=== PATIENT | male | born 1940 | race Caucasian/White ===

== ENCOUNTER 2017-09-24 18:07 | Inpatient (IN) | payer MEDICARE, MEDICAID ==
[~2017-09-24] VITALS: Ht 177.8 cm; Wt 72.0 kg
[2017-09-24 18:23] VITALS: BP 110/54; PULSE 61; RESP 14; TEMP 98.6; O2SAT 100
[2017-09-24 20:08] LABS: AUTOMATED NEUTROPHIL # 13.7 TH/MM3 (1.8-7.7); BASOPHIL # 0.1 TH/MM3 (0-0.2); BASOPHIL % 0.8 % (0.0-2.0); EOSINOPHIL # 0.2 TH/MM3 (0-0.4); HEMATOCRIT 31.7 % (39.0-51.0); HEMOGLOBIN 10.4 GM/DL (13.0-17.0); LYMPH % 6.8 % (9.0-44.0); LYMPHOCYTE # 1.1 TH/MM3 (1.0-4.8); MEAN CELL VOLUME 102.1 FL (80.0-100.0); MEAN CORPUSCULAR HEMOGLOBIN 33.6 PG (27.0-34.0); MEAN CORPUSCULAR HGB CONC 32.9 % (32.0-36.0); MEAN PLATELET VOLUME 9.4 FL (7.0-11.0); MONO % 7.6 % (0.0-8.0); MONOCYTE # 1.3 TH/MM3 (0-0.9); NEUT % 83.8 % (16.0-70.0); PLATELET COUNT 422 TH/MM3 (150-450); RED CELL DISTRIBUTION WIDTH 16.2 % (11.6-17.2); WHITE BLOOD COUNT 16.3 TH/MM3 (4.0-11.0)
--- NOTE | 2017-09-24 20:10 | PD ---
HPI Chief Complaint: Medical Clearance Time Seen by Provider: 19:07 Travel History International Travel<30 days: No Contact w/Intl Traveler<30days: No Traveled to known affect area: No History of Present Illness HPI pt bed bound legs contracte d male , he is alert and oriented times 2 able to tell me he has chronic leg pain , says he lives in [facility], [place] was sent [place] for UTI on antibioitcs not getting better.. Pt has Hx afib and and HTn on anticoagulant and digoxin, pt denies CP no SOB no vomit nausea , pt AOx2 denies skin brake down it sacrum no pain when I palpated throw his clothes sacrum area PFSH Past Medical History Anxiety: Yes Depression: Yes Congestive Heart Failure: Yes COPD: Yes Cerebrovascular Accident: Yes Coronary Artery Disease: Yes Diabetes: Yes Patient Takes Glucophage: No Diminished Hearing: Yes GERD: Yes Gout: Yes Hypertension: Yes Insomnia: Yes Renal Failure: Yes Tetanus Vaccination: Unknown Past Surgical History Eye Surgery: Yes (cataracts excision) Pacemaker: Yes Social History Alcohol Use: No Tobacco Use: No Substance Use: No Allergies-Medications (Allergen,Severity, Reaction): Coded Allergies: No Known Allergies (Unverified , 09/24/17) Reported Meds & Prescriptions Reported Meds & Active Scripts Active Reported Docusate Sodium 100 Mg Cap 100 Mg PO BID Tylenol (Acetaminophen) 325 Mg Tab 325 Mg PO Q6H PRN Albuterol Neb (Albuterol Sulfate) 2.5 Mg/0.5 Ml Neb 2.5 Mg NEB Q4HR NEB PRN Note: The Albuterol Sulfate Inhalation Solution is concentrated and must be diluted. Read complete instructions carefully before using. Zofran (Ondansetron HCl) 4 Mg Tab 4 Mg PO Q6HR PRN Aspirin Low Dose (Aspirin) 81 Mg Chew 81 Mg CHEW DAILY Plavix (Clopidogrel Bisulfate) 75 Mg Tab 75 Mg PO DAILY Zantac (Ranitidine HCl) 150 Mg Tab 150 Mg PO DAILY Allopurinol 100 Mg Tab 150 Mg PO DAILY Bumetanide 1 Mg Tab 1 Mg PO DAILY Digoxin 0.125 Mg Tab 0.125 Mg PO EVERY OTHER DAY Zocor (Simvastatin) 10 Mg Tab 10 Mg PO DAILY Prozac (Fluoxetine HCl) 20 Mg Cap 20 Mg PO DAILY Metoprolol Tartrate 25 Mg Tab 25 Mg PO BID Review of Systems Except as stated in HPI: all other systems reviewed are Neg (leg knee pain bilateral is all he complained of to this MD ) Physical Exam Narrative GENERAL: awake alert non toxic appearing and able to answeer my question s , SKIN: Warm and dry. HEAD: Atraumatic. Normocephalic. EYES: Pupils equal and round. No scleral icterus. No injection or drainage. ENT: No nasal bleeding or discharge. Mucous membranes pink and moist. NECK: Trachea midline. No JVD. CARDIOVASCULAR: Regular rate and rhythm. RESPIRATORY: No accessory muscle use. Clear to auscultation. Breath sounds equal bilaterally. GASTROINTESTINAL: Abdomen soft, non-tender, nondistended. Hepatic and splenic margins not palpable. MUSCULOSKELETAL: Extremities Bed bound --> legs contracted in bed, no signs of injury, no pain with palpation of his knees and feet bilateral , right leg is thinner and seems more wasting then left, left leg on bed and mostlikely more gravity dependent Edema in LEFT side . pt laying on his left side ...without obvious injury or pain reaction to manipulation NEUROLOGICAL: Awake and alert. No obvious cranial nerve deficits. Motor grossly within normal limits. Five out of 5 muscle strength in the arms and legs. Normal speech. PSYCHIATRIC: Appropriate mood and affect Data Data Last Documented VS Vital Signs Date Time Temp Pulse Resp B/P (MAP) Pulse Ox O2 Delivery O2 Flow Rate FiO2 09/24/17 18:23 98.6 61 14 110/54 (72) 100 Room Air Orders Orders Complete Blood Count With Diff (09/24/17 19:14) Comprehensive Metabolic Panel (09/24/17 19:14) Lipase (09/24/17 19:14) Ua Includes Microscopic (09/24/17 19:14) Levofloxacin 750 Mg Premix Inj (Levaquin (09/24/17 20:45) Urine Culture (09/24/17 21:50) Acetaminophen (Tylenol) (09/24/17 22:00) Aspirin Chew (Aspirin Chew) (09/25/17 09:00) Clopidogrel (Plavix) (09/25/17 09:00) Digoxin (Lanoxin) (09/26/17 09:00) Docusate Sodium (Colace) (09/25/17 09:00) Fluoxetine (Prozac) (09/25/17 09:00) Metoprolol Tartrate (Lopressor) (09/25/17 09:00) Ondansetron Odt (Zofran Odt) (09/24/17 22:00) Famotidine (Pepcid) (09/25/17 09:00) Pravastatin (Pravachol) (09/25/17 09:00) Admit Order (Ed Use Only) (09/24/17 21:54) Albuterol Neb (Albuterol Neb) (09/24/17 22:00) Labs Laboratory Tests Test 09/24/17 19:20 White Blood Count 16.3 TH/MM3 Red Blood Count 3.10 MIL/MM3 Hemoglobin 10.4 GM/DL Hematocrit 31.7 % Mean Corpuscular Volume 102.1 FL Mean Corpuscular Hemoglobin 33.6 PG Mean Corpuscular Hemoglobin Concent 32.9 % Red Cell Distribution Width 16.2 % Platelet Count 422 TH/MM3 Mean Platelet Volume 9.4 FL Neutrophils (%) (Auto) 83.8 % Lymphocytes (%) (Auto) 6.8 % Monocytes (%) (Auto) 7.6 % Eosinophils (%) (Auto) 1.0 % Basophils (%) (Auto) 0.8 % Neutrophils # (Auto) 13.7 TH/MM3 Lymphocytes # (Auto) 1.1 TH/MM3 Monocytes # (Auto) 1.3 TH/MM3 Eosinophils # (Auto) 0.2 TH/MM3 Basophils # (Auto) 0.1 TH/MM3 CBC Comment DIFF FINAL Differential Comment Urine Color YELLOW Urine Turbidity HAZY Urine pH 5.5 Urine Specific [place] 1.011 Urine Protein TRACE mg/dL Urine Glucose (UA) NEG mg/dL Urine Ketones NEG mg/dL Urine Occult Blood MOD Urine Nitrite NEG Urine Bilirubin NEG Urine Urobilinogen LESS THAN 2.0 MG/DL Urine Leukocyte Esterase LARGE Urine RBC 7 /hpf Urine WBC 50 /hpf Urine Squamous Epithelial Cells <1 /hpf Urine Bacteria OCC /hpf Urine Mucus FEW /lpf Blood Urea Nitrogen 58 MG/DL Creatinine 2.13 MG/DL Random Glucose 156 MG/DL Total Protein 6.3 GM/DL Albumin 1.9 GM/DL Calcium Level 8.1 MG/DL Alkaline Phosphatase 390 U/L Aspartate Amino Transf (AST/SGOT) 81 U/L Alanine Aminotransferase (ALT/SGPT) 63 U/L Total Bilirubin 0.8 MG/DL Sodium Level 134 MEQ/L Potassium Level 4.6 MEQ/L Chloride Level 104 MEQ/L Carbon Dioxide Level 20.5 MEQ/L Anion Gap 10 MEQ/L Estimat Glomerular Filtration Rate 31 ML/MIN Lipase 75 U/L MDM Medical Decision Making Medical Screen Exam Complete: Yes Emergency Medical Condition: Yes Differential Diagnosis UTI URI , cystitis, pyelonephritis , other Narrative Course Pt has Urine analysis postive for WBC and will given IV levaquin and admit for further care obs 24 hr admit Diagnosis Primary Impression: UTI (urinary tract infection) Qualified Codes: N30.00 - Acute cystitis without hematuria Admitting Information Admitting Physician Requests: Observation Vladislav Lynn MD Sep 24, 2017 20:10
[2017-09-24 20:12] LABS: BACTERIA, URINE OCC /hpf; BILIRUBIN, URINE NEG (NEG); BLOOD, URINE MOD (NEG); GLUCOSE,URINE NEG (NEG); KETONE, URINE NEG (NEG); MUCUS URINE FEW /lpf (OCC); NITRITE,URINE NEG (NEG); PH, URINE 5.5 (5.0-8.5); SQUAMOUS EPITHELIAL CELL URINE <1 /hpf (0-5); URINE COLOR YELLOW (YELLW/STRAW); URINE LEUKOCYTE ESTERASE LARGE (NEG)
[2017-09-24] MEDS ORDERED: PLAV75TA29 PO (20:26)
[2017-09-24] MEDS ORDERED: TYLE325T PO ×2 (20:26)
[2017-09-24] MEDS ORDERED: METO25TA3 PO ×2 (20:26)
[2017-09-24] MEDS ORDERED: ALLO100T PO ×2 (20:26)
[2017-09-24] MEDS ORDERED: DIGO0.12 PO ×2 (20:26)
[2017-09-24] MEDS ORDERED: ZOCO10TA PO ×2 (20:26)
[2017-09-24] MEDS ORDERED: DOCU100C15 PO ×2 (20:26)
[2017-09-24] MEDS ORDERED: ZOFR4TAB PO ×2 (20:26)
[2017-09-24] MEDS ORDERED: ASPI81CH6 CHEW (20:26)
[2017-09-24] MEDS ORDERED: ALBU.5I NEB ×2 (20:26)
[2017-09-24] MEDS ORDERED: ZANT150T2 PO ×2 (20:26)
[2017-09-24] MEDS ORDERED: PROZ20CA11 PO ×2 (20:26)
[2017-09-24] MEDS ORDERED: BUME1TAB PO (20:26)
[2017-09-24 20:38] LABS: ALBUMIN 1.9 GM/DL (3.4-5.0); ALT (GPT) 63 U/L (12-78); AST (GOT) 81 U/L (15-37); BICARBONATE 20.5 MEQ/L (21.0-32.0); BLOOD UREA NITROGEN 58 MG/DL (7-18); CALCIUM 8.1 MG/DL (8.5-10.1); CHLORIDE 104 MEQ/L (98-107); CREATININE 2.13 MG/DL (0.60-1.30); GLOMERULAR FILTRATION RATE 31 ML/MIN (>89); GLUCOSE,RANDOM 156 MG/DL (74-106); SODIUM (NA) 134 MEQ/L (136-145)
[2017-09-24 20:40] LABS: ALKALINE PHOSPHATASE 390 U/L (45-117); TOTAL BILIRUBIN ADULT 0.8 MG/DL (0.2-1.0); TOTAL PROTEIN 6.3 GM/DL (6.4-8.2)
[2017-09-24] MEDS ORDERED: LEVOFLOXACIN 750 MG PREMIX INJ 150 ML IV ONE (20:45)
[2017-09-24] MEDS ORDERED: NALOXONE HCL 0.4 MG/ML AMP IV PUSH PRN (22:00)
[2017-09-24] MEDS ORDERED: MAGNESIUM HYDROXIDE SUSP 30 ML CUP PO PRN (22:00)
[2017-09-24] MEDS ORDERED: BISACODYL 10 MG SUPP RECTAL PRN (22:00)
[2017-09-24] MEDS ORDERED: RESP: ALBUTEROL 2.5 MG/3 ML NEB (PRN) NEB (22:00)
[2017-09-24] MEDS ORDERED: SODIUM CHLORIDE 0.9% FLUSH 10 ML FLUSH IV FLUSH PRN (22:00)
[2017-09-24] MEDS ORDERED: ONDANSETRON ODT 4 MG TAB PO PRN (22:00)
[2017-09-24] MEDS ORDERED: ONDANSETRON HCL 4 MG/2 ML VIAL IVP PRN (22:00)
[2017-09-24] MEDS ORDERED: ACETAMINOPHEN 325 MG TAB PO PRN ×2 (22:00)
[2017-09-24] MEDS ORDERED: LACTULOSE SYRUP 20 GM/30 ML CUP PO PRN (22:00)
[2017-09-24] MEDS ORDERED: SENNOSIDES 8.6 MG TAB PO PRN (22:00)
[2017-09-24] MEDS: HEPARIN SODIUM - SQ 10,000 UNITS/ML VIAL SQ SCH (22:32)
[2017-09-24] MEDS: SODIUM CHLOR 0.9% 1000 ML INJ 1,000 ML IV SCH (22:33)
[2017-09-24 22:54] VITALS: BP 112/61; PULSE 65; RESP 20; O2SAT 94
--- NOTE | 2017-09-24 23:14 | HHI.HP ---
[facility] Primary Care Physician Jerry Schaffer MD Admission Diagnosis UTI Diagnoses: Chief Complaint: Sent from care home, concern for UTI Travel History International Travel<30 Days: No Contact w/Intl Traveler <30 Da: No Traveled to Known Affected Are: No History of Present Illness 76-year-old male brought to the hospital from a care home. Apparently the patient was sent for concern of urinary tract infection. I reviewed the available medical records from the nursing facility. Apparently the patient has a history of CVA, he is bedbound. He does have an appointed guardian in his chart. Evidently he has some cognitive deficits. He knows his name and that he is in the hospital but he does not know why. He is unable to contribute to the medical history. He currently denies any dysuria. He does not know whether or not he has had fevers. He could not tell me the last time he ate. He is very hard of hearing and currently does not have any specific complaints. Review of Systems ROS Limitations: Clinical Condition, Poor Historian Gastrointestinal: DENIES: Abdominal pain, Nausea Limited ROS due to the patient's cognitive dysfunction. Past Family Social History Past Medical History Review of outside records History of CVA with unspecified residual deficit. Patient is bedbound. Atrial fibrillation COPD History of CHF, unknown type Hypertension Diabetes Past Surgical History Unable to obtain Reported Medications Reported Meds & Active Scripts Active Reported Docusate Sodium 100 Mg Cap 100 Mg PO BID Tylenol (Acetaminophen) 325 Mg Tab 325 Mg PO Q6H PRN Albuterol Neb (Albuterol Sulfate) 2.5 Mg/0.5 Ml Neb 2.5 Mg NEB Q4HR NEB PRN Note: The Albuterol Sulfate Inhalation Solution is concentrated and must be diluted. Read complete instructions carefully before using. Zofran (Ondansetron HCl) 4 Mg Tab 4 Mg PO Q6HR PRN Aspirin Low Dose (Aspirin) 81 Mg Chew 81 Mg CHEW DAILY Plavix (Clopidogrel Bisulfate) 75 Mg Tab 75 Mg PO DAILY Zantac (Ranitidine HCl) 150 Mg Tab 150 Mg PO DAILY Allopurinol 100 Mg Tab 150 Mg PO DAILY Bumetanide 1 Mg Tab 1 Mg PO DAILY Digoxin 0.125 Mg Tab 0.125 Mg PO EVERY OTHER DAY Zocor (Simvastatin) 10 Mg Tab 10 Mg PO DAILY Prozac (Fluoxetine HCl) 20 Mg Cap 20 Mg PO DAILY Metoprolol Tartrate 25 Mg Tab 25 Mg PO BID Allergies: Coded Allergies: No Known Allergies (Unverified , 09/24/17) Family History Unable to obtain Social History Unable to obtain Physical Exam Vital Signs Vital Signs Date Time Temp Pulse Resp B/P (MAP) Pulse Ox O2 Delivery O2 Flow Rate FiO2 09/24/17 22:54 65 20 112/61 (78) 94 09/24/17 18:23 98.6 61 14 110/54 (72) 100 Room Air Physical Exam GENERAL: Elderly male in no acute distress. SKIN: No rashes, ecchymoses or lesions. Cool and dry. HEAD: Atraumatic. Normocephalic. No temporal or scalp tenderness. EYES: Pupils equal round and reactive. Extraocular motions intact. No scleral icterus. No injection or drainage. ENT: Nose without bleeding, purulent drainage or septal hematoma. Throat without erythema, tonsillar hypertrophy or exudate. Uvula midline. Airway patent. NECK: Trachea midline. No JVD or lymphadenopathy. Supple, nontender, no meningeal signs. CARDIOVASCULAR: Regular rate and rhythm without murmurs, gallops, or rubs. RESPIRATORY: Clear to auscultation. Breath sounds equal bilaterally. No wheezes , rales, or rhonchi. GASTROINTESTINAL: Abdomen soft, non-tender, nondistended. No hepato-splenomegaly , or palpable masses. No guarding. MUSCULOSKELETAL: Bilateral lower extremities with contractures. 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 No significant strength in the legs. NEUROLOGICAL: Awake and alert to self only. Very hard of hearing. Can answer simple yes or no questions. Laboratory Laboratory Tests Test 09/24/17 19:20 White Blood Count 16.3 Red Blood Count 3.10 Hemoglobin 10.4 Hematocrit 31.7 Mean Corpuscular Volume 102.1 Mean Corpuscular Hemoglobin 33.6 Mean Corpuscular Hemoglobin Concent 32.9 Red Cell Distribution Width 16.2 Platelet Count 422 Mean Platelet Volume 9.4 Neutrophils (%) (Auto) 83.8 Lymphocytes (%) (Auto) 6.8 Monocytes (%) (Auto) 7.6 Eosinophils (%) (Auto) 1.0 Basophils (%) (Auto) 0.8 Neutrophils # (Auto) 13.7 Lymphocytes # (Auto) 1.1 Monocytes # (Auto) 1.3 Eosinophils # (Auto) 0.2 Basophils # (Auto) 0.1 CBC Comment DIFF FINAL Differential Comment Urine Color YELLOW Urine Turbidity HAZY Urine pH 5.5 Urine Specific [place] 1.011 Urine Protein TRACE Urine Glucose (UA) NEG Urine Ketones NEG Urine Occult Blood MOD Urine Nitrite NEG Urine Bilirubin NEG Urine Urobilinogen LESS THAN 2.0 Urine Leukocyte Esterase LARGE Urine RBC 7 Urine WBC 50 Urine Squamous Epithelial Cells <1 Urine Bacteria OCC Urine Mucus FEW Blood Urea Nitrogen 58 Creatinine 2.13 Random Glucose 156 Total Protein 6.3 Albumin 1.9 Calcium Level 8.1 Alkaline Phosphatase 390 Aspartate Amino Transf (AST/SGOT) 81 Alanine Aminotransferase (ALT/SGPT) 63 Total Bilirubin 0.8 Sodium Level 134 Potassium Level 4.6 Chloride Level 104 Carbon Dioxide Level 20.5 Anion Gap 10 Estimat Glomerular Filtration Rate 31 Lipase 75 Result Diagram: 09/24/17191909/24/171919 Caprini VTE Risk Assessment Caprini VTE Risk Assessment: Mod/High Risk (score >= 2) Caprini Risk Assessment Model Point Value = 1 Point Value = 2 Point Value = 3 Point Value = 5 Age 41-60 Minor surgery BMI > 25 kg/m2 Swollen legs Varicose veins or History of unexplained or recurrent spontaneous Oral contraceptives or hormone replacement Sepsis (< 1 month) Serious lung disease, including pneumonia (< 1 month) Abnormal pulmonary function Acute myocardial infarction Congestive heart failure (< 1 month) History of inflammatory bowel disease Medical patient at bed rest Age 61-74 Arthroscopic surgery Major open surgery (> 45 min) Laparoscopic surgery (> 45 min) Malignancy Confined to bed (> 72 hours) Immobilizing plaster cast Central venous access Age >= 75 History of VTE Family history of VTE Factor V Leiden Prothrombin [id number] Lupus anticoagulant Anticardiolipin antibodies Elevated serum homocysteine Heparin-induced thrombocytopenia Other congenital or acquired thrombophilia Stroke (< 1 month) Elective arthroplasty Hip, pelvis, or leg fracture Acute spinal cord injury (< 1 month) Prophylaxis Regimen Total Risk Factor Score Risk Level Prophylaxis Regimen 0-1 Low Early ambulation 2 Moderate Order ONE of the following: *Sequential Compression Device (SCD) *Heparin 5000 units SQ BID 3-4 Higher Order ONE of the following medications: *Heparin 5000 units SQ TID *Enoxaparin/Lovenox 40 mg SQ daily (WT < 150 kg, CrCl > 30 mL/min) *Enoxaparin/Lovenox 30 mg SQ daily (WT < 150 kg, CrCl > 10-29 mL/min) *Enoxaparin/Lovenox 30 mg SQ BID (WT < 150 kg, CrCl > 30 mL/min) AND/OR *Sequential Compression Device (SCD) 5 or more Highest Order ONE of the following medications: *Heparin 5000 units SQ TID (Preferred with Epidurals) *Enoxaparin/Lovenox 40 mg SQ daily (WT < 150 kg, CrCl > 30 mL/min) *Enoxaparin/Lovenox 30 mg SQ daily (WT < 150 kg, CrCl > 10-29 mL/min) *Enoxaparin/Lovenox 30 mg SQ BID (WT < 150 kg, CrCl > 30 mL/min) AND *Sequential Compression Device (SCD) Assessment and Plan Problem List: (1) Hypertension ICD Code: I10 - Essential (primary) hypertension (2) Diabetes ICD Code: E11.9 - Type 2 diabetes mellitus without complications (3) 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 Patient was given Levaquin in the ED. - Given borderline renal functions, will continue antibiotics with Rocephin. No history of MDRO per review of care home chart. - follow urine culture Hypertension: Medicine continue metoprolol History of atrial fibrillation: - Continue metoprolol and digoxin. On aspirin. Unclear to me why he is not anticoagulated. Defer to his outpatient doctors. Diabetes: Sliding scale insulin with Accu-Cheks Social: Patient apparently has an appointed guardian. Paperwork in the chart. Case management consulted for assistance. Will need to return to nursing facility. Cognitive deficits/history of stroke: Patient is nonambulatory. He is bedbound. 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 Recommend outpatient follow-up with podiatry. CKD stage IV: Per review of his chart. Creatinine 2 days ago was 2.0. - Follow-up BMP in a.m. Gentle hydration 1 L of normal saline. GI prophylaxis: Stool softener PRN constipation. DVT PPx: Heparin Discussed Condition With ED staff Gianni Munroe MD Sep 24, 2017 23:14
[2017-09-25 04:42] VITALS: BP 143/63; PULSE 65; RESP 14; TEMP 98.2; O2SAT 98
[2017-09-25 07:07] LABS: AUTOMATED NEUTROPHIL # 12.3 TH/MM3 (1.8-7.7); BASOPHIL # 0.1 TH/MM3 (0-0.2); BASOPHIL % 0.4 % (0.0-2.0); EOSINOPHIL # 0.1 TH/MM3 (0-0.4); EOSINOPHIL % 0.9 % (0.0-4.0); HEMATOCRIT 29.5 % (39.0-51.0); HEMOGLOBIN 9.7 GM/DL (13.0-17.0); LYMPH % 5.7 % (9.0-44.0); LYMPHOCYTE # 0.8 TH/MM3 (1.0-4.8); MEAN CELL VOLUME 100.8 FL (80.0-100.0); MEAN CORPUSCULAR HEMOGLOBIN 33.4 PG (27.0-34.0); MEAN CORPUSCULAR HGB CONC 33.1 % (32.0-36.0); MEAN PLATELET VOLUME 9.2 FL (7.0-11.0); MONO % 7.3 % (0.0-8.0); MONOCYTE # 1.1 TH/MM3 (0-0.9); NEUT % 85.7 % (16.0-70.0); PLATELET COUNT 395 TH/MM3 (150-450); RED BLOOD COUNT 2.92 MIL/MM3 (4.50-5.90); RED CELL DISTRIBUTION WIDTH 16.3 % (11.6-17.2); WHITE BLOOD COUNT 14.3 TH/MM3 (4.0-11.0)
[2017-09-25] MEDS: SODIUM CHLOR 0.9% 1000 ML INJ 1,000 ML IV SCH (07:10)
[2017-09-25 07:35] LABS: BICARBONATE 20.5 MEQ/L (21.0-32.0); CREATININE 1.91 MG/DL (0.60-1.30)
[2017-09-25 07:46] VITALS: BP 111/58; PULSE 65; RESP 18; TEMP 98.1; O2SAT 97
[2017-09-25] MEDS: INSULIN ASPART SUPPLEMENTAL SCALE SQ SCH ×4 (08:00→20:37)
[2017-09-25] MEDS: CLOPIDOGREL 75 MG TAB PO SCH (09:00)
[2017-09-25] MEDS: PRAVASTATIN SOD 20 MG TAB PO SCH (09:00)
[2017-09-25] MEDS: METOPROLOL TARTRATE 25 MG TAB PO SCH ×2 (09:00→20:36)
[2017-09-25] MEDS: SODIUM CHLORIDE 0.9% FLUSH 10 ML FLUSH IV FLUSH SCH ×2 (09:00→20:37)
[2017-09-25] MEDS: ASPIRIN 81 MG CHEW TAB CHEW SCH (09:00)
[2017-09-25] MEDS: cefTRIAXone INJ 1,000 MG in SODIUM CHLORIDE 0.9% INJ 100 ML IV SCH ×2 (09:00→09:30)
[2017-09-25] MEDS: FAMOTIDINE 20 MG TAB PO SCH (09:00)
[2017-09-25] MEDS: DOCUSATE SODIUM 100 MG CAP PO SCH ×2 (09:00→20:37)
[2017-09-25] MEDS: FLUoxetine HCL 20 MG CAP PO SCH (09:00)
[2017-09-25] MEDS: HEPARIN SODIUM - SQ 10,000 UNITS/ML VIAL SQ SCH ×2 (10:00→20:38)
--- NOTE | 2017-09-25 10:02 | HHI.PR ---
Subjective Remarks 76-year-old male brought to the hospital from a [facility]. Apparently the patient was sent for concern of urinary tract infection. I reviewed the available medical records from the nursing facility. Apparently the patient has a history of CVA, he is bedbound. He does have an appointed guardian in his chart. Evidently he has some cognitive deficits. He knows his name and that he is in the hospital but he does not know why. He is unable to contribute to the medical history. He currently denies any dysuria. He does not know whether or not he has had fevers. He could not tell me the last time he ate. He is very hard of hearing and currently does not have any specific complaints. 3-1 patient is incredibly hard of hearing No current complaints Last physical therapy and occupational therapy to eval and treat Continue on Rocephin Discussed with patient and RN Objective Vitals Vital Signs Date Time Temp Pulse Resp B/P (MAP) Pulse Ox O2 Delivery O2 Flow Rate FiO2 09/25/17 07:46 98.1 65 18 111/58 (75) 97 09/25/17 04:42 98.2 65 14 143/63 (89) 98 09/24/17 22:54 65 20 112/61 (78) 94 09/24/17 18:23 98.6 61 14 110/54 (72) 100 Room Air I/O 09/24/17 09/24/17 09/24/17 09/25/17 09/25/17 09/25/17 07:00 15:00 23:00 07:00 15:00 23:00 Intake Total 100 ml Balance 100 ml Intake IV Total 100 ml # Voids 2 1 Result Diagram: 09/25/17 0600 09/25/17 0600 Other Results Laboratory Tests Test 09/24/17 19:20 09/25/17 06:00 White Blood Count 16.3 TH/MM3 14.3 TH/MM3 Red Blood Count 3.10 MIL/MM3 2.92 MIL/MM3 Hemoglobin 10.4 GM/DL 9.7 GM/DL Hematocrit 31.7 % 29.5 % Mean Corpuscular Volume 102.1 FL 100.8 FL Mean Corpuscular Hemoglobin 33.6 PG 33.4 PG Mean Corpuscular Hemoglobin Concent 32.9 % 33.1 % Red Cell Distribution Width 16.2 % 16.3 % Platelet Count 422 TH/MM3 395 TH/MM3 Mean Platelet Volume 9.4 FL 9.2 FL Neutrophils (%) (Auto) 83.8 % 85.7 % Lymphocytes (%) (Auto) 6.8 % 5.7 % Monocytes (%) (Auto) 7.6 % 7.3 % Eosinophils (%) (Auto) 1.0 % 0.9 % Basophils (%) (Auto) 0.8 % 0.4 % Neutrophils # (Auto) 13.7 TH/MM3 12.3 TH/MM3 Lymphocytes # (Auto) 1.1 TH/MM3 0.8 TH/MM3 Monocytes # (Auto) 1.3 TH/MM3 1.1 TH/MM3 Eosinophils # (Auto) 0.2 TH/MM3 0.1 TH/MM3 Basophils # (Auto) 0.1 TH/MM3 0.1 TH/MM3 CBC Comment DIFF FINAL DIFF FINAL Differential Comment Urine Color YELLOW Urine Turbidity HAZY Urine pH 5.5 Urine Specific [place] 1.011 Urine Protein TRACE mg/dL Urine Glucose (UA) NEG mg/dL Urine Ketones NEG mg/dL Urine Occult Blood MOD Urine Nitrite NEG Urine Bilirubin NEG Urine Urobilinogen LESS THAN 2.0 MG/DL Urine Leukocyte Esterase LARGE Urine RBC 7 /hpf Urine WBC 50 /hpf Urine Squamous Epithelial Cells <1 /hpf Urine Bacteria OCC /hpf Urine Mucus FEW /lpf Blood Urea Nitrogen 58 MG/DL 54 MG/DL Creatinine 2.13 MG/DL 1.91 MG/DL Random Glucose 156 MG/DL 100 MG/DL Total Protein 6.3 GM/DL Albumin 1.9 GM/DL Calcium Level 8.1 MG/DL 8.0 MG/DL Alkaline Phosphatase 390 U/L Aspartate Amino Transf (AST/SGOT) 81 U/L Alanine Aminotransferase (ALT/SGPT) 63 U/L Total Bilirubin 0.8 MG/DL Sodium Level 134 MEQ/L 139 MEQ/L Potassium Level 4.6 MEQ/L 3.7 MEQ/L Chloride Level 104 MEQ/L 107 MEQ/L Carbon Dioxide Level 20.5 MEQ/L 20.5 MEQ/L Anion Gap 10 MEQ/L 12 MEQ/L Estimat Glomerular Filtration Rate 31 ML/MIN 35 ML/MIN Lipase 75 U/L Objective Remarks GENERAL: Awake and alert but very hard of hearing to the point where he cannot answer questions appropriately-incredibly hard of hearing SKIN: Warm and dry. HEAD: Atraumatic. Normocephalic. Very hard of hearing EYES: Pupils equal and round. No scleral icterus. No injection or drainage. Extraocular muscles intact ENT: No nasal bleeding or discharge. Mucous membranes pink and moist. Tongue is midline NECK: Trachea midline. No JVD. Supple CARDIOVASCULAR: Regular rate and rhythm. S1-S2 no S3 or S4 RESPIRATORY: No accessory muscle use. Clear to auscultation. Breath sounds equal bilaterally. GASTROINTESTINAL: Abdomen soft, non-tender, nondistended. Hepatic and splenic margins not palpable. MUSCULOSKELETAL: Extremities without clubbing, cyanosis, or edema. No obvious deformities. Bilateral lower extremities are contracted NEUROLOGICAL: Awake and alert. No obvious cranial nerve deficits. Motor grossly within normal limits.4 out of 5 muscle strength in the arms and legs. Normal speech. PSYCHIATRIC: Appropriate mood and affect; insight and judgment ABnormal. Patient is very hard of hearing Medications and IVs Current Medications Levofloxacin/ Dextrose 150 ml @ 100 mls/hr ONCE ONCE IV Last administered on 09/24/17at 21:15; Start 09/24/17 at 20:45; Stop 09/24/17 at 22:14; Status DC Acetaminophen (Tylenol) 325 mg Q6H PRN PO FEVER; Start 09/24/17 at 22:00 Albuterol Sulfate (Albuterol Neb) 2.5 mg Q4HR NEB PRN NEB COUGH; Start at 22:00 Aspirin (Aspirin Chew) 81 mg DAILY CHEW ; Start 09/25/17 at 09:00 Clopidogrel Bisulfate (Plavix) 75 mg DAILY PO ; Start 09/25/17 at 09:00 Digoxin (Lanoxin) 0.125 mg EVERY OTHER DAY PO ; Start 09/26/17 at 09:00 Docusate Sodium (Colace) 100 mg BID PO ; Start 09/25/17 at 09:00 Fluoxetine HCl (PROzac) 20 mg DAILY PO ; Start 09/25/17 at 09:00 Metoprolol Tartrate (Lopressor) 25 mg BID PO ; Start 09/25/17 at 09:00 Ondansetron HCl (Zofran Odt) 4 mg Q6HR PRN PO NAUSEA OR VOMITING; Start at 22:00 Famotidine (Pepcid) 20 mg DAILY PO ; Start 09/25/17 at 09:00 Pravastatin Sodium (Pravachol) 20 mg DAILY PO ; Start 09/25/17 at 09:00 Sodium Chloride 1,000 ml @ 100 mls/hr Q10H IV Last administered on 09/24/17at 22:33; Start 09/24/17 at 21:53; Stop 09/25/17 at 07:52; Status DC Sodium Chloride (NS Flush) 2 ml UNSCH PRN IV FLUSH FLUSH AFTER USING IV ACCESS ; Start 09/24/17 at 22:00 Sodium Chloride (NS Flush) 2 ml BID IV FLUSH ; Start 09/25/17 at 09:00 Acetaminophen (Tylenol) 650 mg Q4H PRN PO TEMP > 100.4; Start 09/24/17 at 22:00 Ondansetron HCl (Zofran Inj) 4 mg Q6H PRN IVP NAUSEA OR VOMITING; Start at 22:00 Heparin Sodium (Porcine) (Heparin Inj) 5,000 units Q12H SQ Last administered on 09/24/17at 22:32; Start 09/24/17 at 22:00 Naloxone HCl (Narcan Inj) 0.4 mg UNSCH PRN IV PUSH SEE LABEL COMMENTS; Start at 22:00 Magnesium Hydroxide (Milk Of Magnesia Liq) 30 ml Q12H PRN PO Mild constipation ; Start 09/24/17 at 22:00 Sennosides (Senokot) 17.2 mg Q12H PRN PO Moderate constipation; Start 09/24/17 at 22:00 Bisacodyl (Dulcolax Supp) 10 mg DAILY PRN RECTAL SEVERE CONSITIPATION/ IF NPO; Start 09/24/17 at 22:00 Lactulose (Lactulose Liq) 30 ml DAILY PRN PO SEVERE CONSITIPATION/ IF PO; Start 09/24/17 at 22:00 Insulin Aspart (NovoLOG SUPPLEMENTAL SCALE) 1 ACHS SLIDING SCALE SQ ; Start 09/25/17 at 08:00 Ceftriaxone Sodium 1000 mg/ Sodium Chloride 100 ml @ 200 mls/hr Q12H IV ; Start 09/25/17 at 09:00 A/P Problem List: (1) Hypertension ICD Code: I10 - Essential (primary) hypertension (2) Diabetes ICD Code: E11.9 - Type 2 diabetes mellitus without complications (3) 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 Patient was given Levaquin in the ED. - Given borderline renal functions, will continue antibiotics with Rocephin. No history of MDRO per review of [facility] chart. - follow urine culture Hypertension: Medicine continue metoprolol History of atrial fibrillation: - Continue metoprolol and digoxin. On aspirin. Unclear to me why he is not anticoagulated. Defer to his outpatient doctors. Diabetes: Sliding scale insulin with Accu-Cheks Social: Patient apparently has an appointed guardian. Paperwork in the chart. Case management consulted for assistance. Will need to return to nursing facility. Cognitive deficits/history of stroke: Patient is nonambulatory. He is bedbound. 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 Recommend outpatient follow-up with podiatry. CKD stage IV: Per review of his chart. Creatinine 2 days ago was 2.0. - Follow-up BMP in a.m. Gentle hydration 1 L of normal saline. GI prophylaxis: Stool softener PRN constipation. Severely hard of hearing Physical therapy and occupational therapy to eval and treat DVT PPx: Heparin Discharge Planning CONTINUE ANTIBIOTICS Adelfo Reed DO Sep 25, 2017 10:02
[2017-09-25 12:08] VITALS: BP 98/45; PULSE 67; RESP 16; TEMP 98; O2SAT 97
[2017-09-25 15:52] VITALS: BP 100/53; PULSE 67; RESP 16; TEMP 97.8; O2SAT 97
[2017-09-25 20:31] VITALS: BP 126/60; PULSE 65; RESP 16; TEMP 97.5; O2SAT 99
[2017-09-25 23:51] VITALS: BP 108/52; PULSE 68; RESP 16; TEMP 97.7; O2SAT 98
[2017-09-26 03:34] VITALS: BP 100/52; PULSE 65; RESP 16; TEMP 97.9; O2SAT 96
[2017-09-26 08:00] VITALS: BP 100/42; PULSE 66; RESP 20; TEMP 98.4; O2SAT 98
[2017-09-26] MEDS: INSULIN ASPART SUPPLEMENTAL SCALE SQ SCH ×4 (08:00→21:00)
[2017-09-26] MEDS: SODIUM CHLORIDE 0.9% FLUSH 10 ML FLUSH IV FLUSH SCH ×2 (08:45→21:00)
[2017-09-26] MEDS: PRAVASTATIN SOD 20 MG TAB PO SCH (08:45)
[2017-09-26] MEDS: DOCUSATE SODIUM 100 MG CAP PO SCH ×2 (08:45→21:11)
[2017-09-26] MEDS: ASPIRIN 81 MG CHEW TAB CHEW SCH (08:46)
[2017-09-26] MEDS: FLUoxetine HCL 20 MG CAP PO SCH (08:46)
[2017-09-26] MEDS: CLOPIDOGREL 75 MG TAB PO SCH (08:46)
[2017-09-26] MEDS: FAMOTIDINE 20 MG TAB PO SCH (08:47)
[2017-09-26] MEDS: METOPROLOL TARTRATE 25 MG TAB PO SCH ×2 (08:47→21:10)
[2017-09-26] MEDS: DIGOXIN 0.125 MG TAB PO SCH (08:47)
[2017-09-26] MEDS: cefTRIAXone INJ 1,000 MG in SODIUM CHLORIDE 0.9% INJ 100 ML IV SCH ×2 (08:48→21:09)
[2017-09-26] MEDS: HEPARIN SODIUM - SQ 10,000 UNITS/ML VIAL SQ SCH ×2 (09:38→21:10)
--- NOTE | 2017-09-26 11:07 | HHI.PR ---
Subjective Remarks 76-year-old male brought to the hospital from a detention. Apparently the patient was sent for concern of urinary tract infection. I reviewed the available medical records from the nursing facility. Apparently the patient has a history of CVA, he is bedbound. He does have an appointed guardian in his chart. Evidently he has some cognitive deficits. He knows his name and that he is in the hospital but he does not know why. He is unable to contribute to the medical history. He currently denies any dysuria. He does not know whether or not he has had fevers. He could not tell me the last time he ate. He is very hard of hearing and currently does not have any specific complaints. 3-1 patient is incredibly hard of hearing No current complaints Last physical therapy and occupational therapy to eval and treat Continue on Rocephin Discussed with patient and RN 3-2 NO CURRENT COMPLAINTS REFUSED LAB WORK WILL ASK LAB TO REDRAW DW RN AND PATIENT DEPENDING ON LAB WORK POSSIBLE DC BACK TO SNF TOMORROW Objective Vitals Vital Signs Date Time Temp Pulse Resp B/P (MAP) Pulse Ox O2 Delivery O2 Flow Rate FiO2 09/26/17 08:00 98.4 66 20 100/42 (61) 98 09/26/17 03:34 97.9 65 16 100/52 (68) 96 09/25/17 23:51 97.7 68 16 108/52 (70) 98 09/25/17 20:31 97.5 65 16 126/60 (82) 99 09/25/17 15:52 97.8 67 16 100/53 (69) 97 09/25/17 12:08 98.0 67 16 98/45 (62) 97 I/O 09/25/17 09/25/17 09/25/17 09/26/17 09/26/17 09/26/17 07:00 15:00 23:00 07:00 15:00 23:00 Intake Total 720 ml Output Total 365 ml Balance 355 ml Intake Oral 720 ml Output Urine Total 365 ml # Voids 2 1 2 Result Diagram: 09/25/17 0600 09/25/17 0600 Other Results Laboratory Tests Test 09/24/17 19:20 09/25/17 06:00 White Blood Count 16.3 TH/MM3 14.3 TH/MM3 Red Blood Count 3.10 MIL/MM3 2.92 MIL/MM3 Hemoglobin 10.4 GM/DL 9.7 GM/DL Hematocrit 31.7 % 29.5 % Mean Corpuscular Volume 102.1 FL 100.8 FL Mean Corpuscular Hemoglobin 33.6 PG 33.4 PG Mean Corpuscular Hemoglobin Concent 32.9 % 33.1 % Red Cell Distribution Width 16.2 % 16.3 % Platelet Count 422 TH/MM3 395 TH/MM3 Mean Platelet Volume 9.4 FL 9.2 FL Neutrophils (%) (Auto) 83.8 % 85.7 % Lymphocytes (%) (Auto) 6.8 % 5.7 % Monocytes (%) (Auto) 7.6 % 7.3 % Eosinophils (%) (Auto) 1.0 % 0.9 % Basophils (%) (Auto) 0.8 % 0.4 % Neutrophils # (Auto) 13.7 TH/MM3 12.3 TH/MM3 Lymphocytes # (Auto) 1.1 TH/MM3 0.8 TH/MM3 Monocytes # (Auto) 1.3 TH/MM3 1.1 TH/MM3 Eosinophils # (Auto) 0.2 TH/MM3 0.1 TH/MM3 Basophils # (Auto) 0.1 TH/MM3 0.1 TH/MM3 CBC Comment DIFF FINAL DIFF FINAL Differential Comment Urine Color YELLOW Urine Turbidity HAZY Urine pH 5.5 Urine Specific [place] 1.011 Urine Protein TRACE mg/dL Urine Glucose (UA) NEG mg/dL Urine Ketones NEG mg/dL Urine Occult Blood MOD Urine Nitrite NEG Urine Bilirubin NEG Urine Urobilinogen LESS THAN 2.0 MG/DL Urine Leukocyte Esterase LARGE Urine RBC 7 /hpf Urine WBC 50 /hpf Urine Squamous Epithelial Cells <1 /hpf Urine Bacteria OCC /hpf Urine Mucus FEW /lpf Blood Urea Nitrogen 58 MG/DL 54 MG/DL Creatinine 2.13 MG/DL 1.91 MG/DL Random Glucose 156 MG/DL 100 MG/DL Total Protein 6.3 GM/DL Albumin 1.9 GM/DL Calcium Level 8.1 MG/DL 8.0 MG/DL Alkaline Phosphatase 390 U/L Aspartate Amino Transf (AST/SGOT) 81 U/L Alanine Aminotransferase (ALT/SGPT) 63 U/L Total Bilirubin 0.8 MG/DL Sodium Level 134 MEQ/L 139 MEQ/L Potassium Level 4.6 MEQ/L 3.7 MEQ/L Chloride Level 104 MEQ/L 107 MEQ/L Carbon Dioxide Level 20.5 MEQ/L 20.5 MEQ/L Anion Gap 10 MEQ/L 12 MEQ/L Estimat Glomerular Filtration Rate 31 ML/MIN 35 ML/MIN Lipase 75 U/L Objective Remarks GENERAL: Awake and alert but very hard of hearing to the point where he cannot answer questions appropriately-incredibly hard of hearing SKIN: Warm and dry. HEAD: Atraumatic. Normocephalic. Very hard of hearing EYES: Pupils equal and round. No scleral icterus. No injection or drainage. Extraocular muscles intact ENT: No nasal bleeding or discharge. Mucous membranes pink and moist. Tongue is midline NECK: Trachea midline. No JVD. Supple CARDIOVASCULAR: Regular rate and rhythm. S1-S2 no S3 or S4 RESPIRATORY: No accessory muscle use. Clear to auscultation. Breath sounds equal bilaterally. GASTROINTESTINAL: Abdomen soft, non-tender, nondistended. Hepatic and splenic margins not palpable. MUSCULOSKELETAL: Extremities without clubbing, cyanosis, or edema. No obvious deformities. Bilateral lower extremities are contracted NEUROLOGICAL: Awake and alert. No obvious cranial nerve deficits. Motor grossly within normal limits.4 out of 5 muscle strength in the arms and legs. Normal speech. PSYCHIATRIC: Appropriate mood and affect; insight and judgment ABnormal. Patient is very hard of hearing Procedures NONE Medications and IVs Current Medications Levofloxacin/ Dextrose 150 ml @ 100 mls/hr ONCE ONCE IV Last administered on 09/24/17at 21:15; Start 09/24/17 at 20:45; Stop 09/24/17 at 22:14; Status DC Acetaminophen (Tylenol) 325 mg Q6H PRN PO FEVER; Start 09/24/17 at 22:00 Albuterol Sulfate (Albuterol Neb) 2.5 mg Q4HR NEB PRN NEB COUGH; Start at 22:00 Aspirin (Aspirin Chew) 81 mg DAILY CHEW Last administered on 09/26/17at 08:46; Start 09/25/17 at 09:00 Clopidogrel Bisulfate (Plavix) 75 mg DAILY PO Last administered on 09/26/17at 08: 46; Start 09/25/17 at 09:00 Digoxin (Lanoxin) 0.125 mg EVERY OTHER DAY PO Last administered on 09/26/17at 08 :47; Start 09/26/17 at 09:00 Docusate Sodium (Colace) 100 mg BID PO Last administered on 09/26/17 08:45; Start 09/25/17 at 09:00 Fluoxetine HCl (PROzac) 20 mg DAILY PO Last administered on 09/26/17 08:46; Start 09/25/17 at 09:00 Metoprolol Tartrate (Lopressor) 25 mg BID PO Last administered on 09/26/17 08: 47; Start 09/25/17 at 09:00 Ondansetron HCl (Zofran Odt) 4 mg Q6HR PRN PO NAUSEA OR VOMITING Last administered on 09/26/17 01:50; Start 09/24/17 at 22:00 Famotidine (Pepcid) 20 mg DAILY PO Last administered on 09/26/17 08:47; Start 09/25/17 at 09:00 Pravastatin Sodium (Pravachol) 20 mg DAILY PO Last administered on 09/26/17 08: 45; Start 09/25/17 at 09:00 Sodium Chloride 1,000 ml @ 100 mls/hr Q10H IV Last administered on 09/24/17at 22:33; Start 09/24/17 at 21:53; Stop 09/25/17 at 07:52; Status DC Sodium Chloride (NS Flush) 2 ml UNSCH PRN IV FLUSH FLUSH AFTER USING IV ACCESS ; Start 09/24/17 at 22:00 Sodium Chloride (NS Flush) 2 ml BID IV FLUSH Last administered on 09/26/17 08: 45; Start 09/25/17 at 09:00 Acetaminophen (Tylenol) 650 mg Q4H PRN PO TEMP > 100.4; Start 09/24/17 at 22:00 Ondansetron HCl (Zofran Inj) 4 mg Q6H PRN IVP NAUSEA OR VOMITING; Start at 22:00 Heparin Sodium (Porcine) (Heparin Inj) 5,000 units Q12H SQ Last administered on 09/25/17at 10:00; Start 09/24/17 at 22:00 Naloxone HCl (Narcan Inj) 0.4 mg UNSCH PRN IV PUSH SEE LABEL COMMENTS; Start at 22:00 Magnesium Hydroxide (Milk Of Magnesia Liq) 30 ml Q12H PRN PO Mild constipation ; Start 09/24/17 at 22:00 Sennosides (Senokot) 17.2 mg Q12H PRN PO Moderate constipation; Start 09/24/17 at 22:00 Bisacodyl (Dulcolax Supp) 10 mg DAILY PRN RECTAL SEVERE CONSITIPATION/ IF NPO; Start 09/24/17 at 22:00 Lactulose (Lactulose Liq) 30 ml DAILY PRN PO SEVERE CONSITIPATION/ IF PO; Start 09/24/17 at 22:00 Insulin Aspart (NovoLOG SUPPLEMENTAL SCALE) 1 ACHS SLIDING SCALE SQ ; Start 09/25/17 at 08:00 Ceftriaxone Sodium 1000 mg/ Sodium Chloride 100 ml @ 200 mls/hr Q12H IV Last administered on 09/26/17at 08:48; Start 09/25/17 at 09:00 A/P Problem List: (1) Hypertension ICD Code: I10 - Essential (primary) hypertension (2) Diabetes ICD Code: E11.9 - Type 2 diabetes mellitus without complications (3) 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 Patient was given Levaquin in the ED. - Given borderline renal functions, will continue antibiotics with Rocephin. No history of MDRO per review of detention chart. - follow urine culture Hypertension: Medicine continue metoprolol History of atrial fibrillation: - Continue metoprolol and digoxin. On aspirin. Unclear to me why he is not anticoagulated. Defer to his outpatient doctors. Diabetes: Sliding scale insulin with Accu-Cheks Social: Patient apparently has an appointed guardian. Paperwork in the chart. Case management consulted for assistance. Will need to return to nursing facility. Cognitive deficits/history of stroke: Patient is nonambulatory. He is bedbound. 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 Recommend outpatient follow-up with podiatry. CKD stage IV: Per review of his chart. Creatinine 2 days ago was 2.0. - Follow-up BMP in a.m. Gentle hydration 1 L of normal saline. GI prophylaxis: Stool softener PRN constipation. Severely hard of hearing Physical therapy and occupational therapy to eval and treat DVT PPx: Heparin AWAIT LAB WORK TODAY IF IMPROVED HOPEFULLY TO SNF TOMORROW Discharge Planning CONTINUE ANTIBIOTICS HOPEFULLY TO SNF IF LABS IMPROVED TOMORROW Problem Qualifiers (1) UTI (urinary tract infection): Qualified Codes: N30.00 - Acute cystitis without hematuria Adelfo Reed DO Sep 26, 2017 11:07
[2017-09-26 11:37] VITALS: BP 90/46; PULSE 64; RESP 16; TEMP 98.5; O2SAT 98
[2017-09-26 13:05] LABS: AUTOMATED NEUTROPHIL # 10.5 TH/MM3 (1.8-7.7); BASOPHIL # 0.1 TH/MM3 (0-0.2); BASOPHIL % 0.9 % (0.0-2.0); EOSINOPHIL # 0.3 TH/MM3 (0-0.4); EOSINOPHIL % 1.9 % (0.0-4.0); HEMATOCRIT 27.9 % (39.0-51.0); HEMOGLOBIN 9.3 GM/DL (13.0-17.0); LYMPH % 8.6 % (9.0-44.0); LYMPHOCYTE # 1.1 TH/MM3 (1.0-4.8); MEAN CELL VOLUME 101.5 FL (80.0-100.0); MEAN CORPUSCULAR HEMOGLOBIN 33.8 PG (27.0-34.0); MEAN CORPUSCULAR HGB CONC 33.3 % (32.0-36.0); MONO % 7.7 % (0.0-8.0); NEUT % 80.9 % (16.0-70.0); PLATELET COUNT 391 TH/MM3 (150-450); RED BLOOD COUNT 2.75 MIL/MM3 (4.50-5.90)
[2017-09-26 13:22] LABS: ALBUMIN 1.9 GM/DL (3.4-5.0); AST (GOT) 60 U/L (15-37); BICARBONATE 20.2 MEQ/L (21.0-32.0); BLOOD UREA NITROGEN 46 MG/DL (7-18); CHLORIDE 108 MEQ/L (98-107); CREATININE 1.83 MG/DL (0.60-1.30); GLOMERULAR FILTRATION RATE 36 ML/MIN (>89); GLUCOSE,RANDOM 95 MG/DL (74-106); SODIUM (NA) 138 MEQ/L (136-145)
[2017-09-26 13:33] LABS: ALKALINE PHOSPHATASE 318 U/L (45-117); ALT (GPT) 50 U/L (12-78); PHOSPHORUS 2.1 MG/DL (2.5-4.9); TOTAL BILIRUBIN ADULT 0.5 MG/DL (0.2-1.0); TOTAL PROTEIN 5.5 GM/DL (6.4-8.2)
[2017-09-26 13:51] LABS: FREE T4 1.06 NG/DL (0.76-1.46)
[2017-09-26 14:55] LABS: HEMOGLOBIN A1C 5.6 % (4.3-6.0)
[2017-09-26 15:29] VITALS: BP 101/57; PULSE 64; RESP 20; TEMP 97.5; O2SAT 98
[2017-09-26 19:50] VITALS: BP_SYST 105; BP_SYST 150; BP_DIAS 57; BP_DIAS 90; PULSE 56; PULSE 62; RESP 17; TEMP 97.9; TEMP 98.1; O2SAT 96
[2017-09-27] VITALS (7 sets, daily range): BP systolic 92–128; BP diastolic 41–60; PULSE 62–65; RESP 17–20; TEMP 97.6–98.2; O2SAT 94–99
[2017-09-27] MEDS: INSULIN ASPART SUPPLEMENTAL SCALE SQ SCH ×4 (08:00→21:00)
[2017-09-27] MEDS: METOPROLOL TARTRATE 25 MG TAB PO SCH ×2 (08:56→21:12)
[2017-09-27] MEDS: FLUoxetine HCL 20 MG CAP PO SCH (09:15)
[2017-09-27] MEDS: PRAVASTATIN SOD 20 MG TAB PO SCH (09:16)
[2017-09-27] MEDS: FAMOTIDINE 20 MG TAB PO SCH (09:16)
[2017-09-27] MEDS: DOCUSATE SODIUM 100 MG CAP PO SCH ×2 (09:16→21:12)
[2017-09-27] MEDS: CLOPIDOGREL 75 MG TAB PO SCH (09:16)
[2017-09-27] MEDS: ASPIRIN 81 MG CHEW TAB CHEW SCH (09:16)
[2017-09-27] MEDS: SODIUM CHLORIDE 0.9% FLUSH 10 ML FLUSH IV FLUSH SCH ×2 (09:19→21:11)
[2017-09-27] MEDS: HEPARIN SODIUM - SQ 10,000 UNITS/ML VIAL SQ SCH ×2 (09:19→21:19)
[2017-09-27] MEDS: cefTRIAXone INJ 1,000 MG in SODIUM CHLORIDE 0.9% INJ 100 ML IV SCH ×2 (09:19→21:11)
--- NOTE | 2017-09-27 10:03 | HHI.PR ---
Subjective Remarks 76-year-old male brought to the hospital from a alf. Apparently the patient was sent for concern of urinary tract infection. I reviewed the available medical records from the nursing facility. Apparently the patient has a history of CVA, he is bedbound. He does have an appointed guardian in his chart. Evidently he has some cognitive deficits. He knows his name and that he is in the hospital but he does not know why. He is unable to contribute to the medical history. He currently denies any dysuria. He does not know whether or not he has had fevers. He could not tell me the last time he ate. He is very hard of hearing and currently does not have any specific complaints. 3-1 patient is incredibly hard of hearing No current complaints Last physical therapy and occupational therapy to eval and treat Continue on Rocephin Discussed with patient and RN 3-2 NO CURRENT COMPLAINTS REFUSED LAB WORK WILL ASK LAB TO REDRAW DW RN AND PATIENT DEPENDING ON LAB WORK POSSIBLE DC BACK TO SNF TOMORROW 3-3 TO HAVE LABS DRAWN TODAY HAS LEUKOCYTOSIS- CONSULT PODIATRY REGARDING GANGRENE TOES Objective Vitals Vital Signs Date Time Temp Pulse Resp B/P (MAP) Pulse Ox O2 Delivery O2 Flow Rate FiO2 09/27/17 08:28 98.0 65 18 95/41 (59) 98 09/27/17 04:46 64 17 114/56 (75) 95 09/26/17 19:50 97.9 62 17 105/57 (73) 96 09/26/17 15:29 97.5 64 20 101/57 (72) 98 09/26/17 11:37 98.5 64 16 90/46 (61) 98 I/O 09/26/17 09/26/17 09/26/17 09/27/17 09/27/17 09/27/17 07:00 15:00 23:00 07:00 15:00 23:00 Intake Total 720 ml Output Total 365 ml 350 ml Balance 355 ml -350 ml Intake Oral 720 ml Output Urine Total 365 ml 350 ml # Voids 1 # Bowel Movements 1 Result Diagram: 09/26/17 1230 09/26/17 1230 Other Results Laboratory Tests Test 09/24/17 19:20 09/25/17 06:00 09/26/17 12:30 White Blood Count 16.3 TH/MM3 14.3 TH/MM3 13.0 TH/MM3 Red Blood Count 3.10 MIL/MM3 2.92 MIL/MM3 2.75 MIL/MM3 Hemoglobin 10.4 GM/DL 9.7 GM/DL 9.3 GM/DL Hematocrit 31.7 % 29.5 % 27.9 % Mean Corpuscular Volume 102.1 FL 100.8 FL 101.5 FL Mean Corpuscular Hemoglobin 33.6 PG 33.4 PG 33.8 PG Mean Corpuscular Hemoglobin Concent 32.9 % 33.1 % 33.3 % Red Cell Distribution Width 16.2 % 16.3 % 16.0 % Platelet Count 422 TH/MM3 395 TH/MM3 391 TH/MM3 Mean Platelet Volume 9.4 FL 9.2 FL 9.0 FL Neutrophils (%) (Auto) 83.8 % 85.7 % 80.9 % Lymphocytes (%) (Auto) 6.8 % 5.7 % 8.6 % Monocytes (%) (Auto) 7.6 % 7.3 % 7.7 % Eosinophils (%) (Auto) 1.0 % 0.9 % 1.9 % Basophils (%) (Auto) 0.8 % 0.4 % 0.9 % Neutrophils # (Auto) 13.7 TH/MM3 12.3 TH/MM3 10.5 TH/MM3 Lymphocytes # (Auto) 1.1 TH/MM3 0.8 TH/MM3 1.1 TH/MM3 Monocytes # (Auto) 1.3 TH/MM3 1.1 TH/MM3 1.0 TH/MM3 Eosinophils # (Auto) 0.2 TH/MM3 0.1 TH/MM3 0.3 TH/MM3 Basophils # (Auto) 0.1 TH/MM3 0.1 TH/MM3 0.1 TH/MM3 CBC Comment DIFF FINAL DIFF FINAL DIFF FINAL Differential Comment Urine Color YELLOW Urine Turbidity HAZY Urine pH 5.5 Urine Specific [place] 1.011 Urine Protein TRACE mg/dL Urine Glucose (UA) NEG mg/dL Urine Ketones NEG mg/dL Urine Occult Blood MOD Urine Nitrite NEG Urine Bilirubin NEG Urine Urobilinogen LESS THAN 2.0 MG/DL Urine Leukocyte Esterase LARGE Urine RBC 7 /hpf Urine WBC 50 /hpf Urine Squamous Epithelial Cells <1 /hpf Urine Bacteria OCC /hpf Urine Mucus FEW /lpf Blood Urea Nitrogen 58 MG/DL 54 MG/DL 46 MG/DL Creatinine 2.13 MG/DL 1.91 MG/DL 1.83 MG/DL Random Glucose 156 MG/DL 100 MG/DL 95 MG/DL Total Protein 6.3 GM/DL 5.5 GM/DL Albumin 1.9 GM/DL 1.9 GM/DL Calcium Level 8.1 MG/DL 8.0 MG/DL 8.0 MG/DL Alkaline Phosphatase 390 U/L 318 U/L Aspartate Amino Transf (AST/SGOT) 81 U/L 60 U/L Alanine Aminotransferase (ALT/SGPT) 63 U/L 50 U/L Total Bilirubin 0.8 MG/DL 0.5 MG/DL Sodium Level 134 MEQ/L 139 MEQ/L 138 MEQ/L Potassium Level 4.6 MEQ/L 3.7 MEQ/L 4.1 MEQ/L Chloride Level 104 MEQ/L 107 MEQ/L 108 MEQ/L Carbon Dioxide Level 20.5 MEQ/L 20.5 MEQ/L 20.2 MEQ/L Anion Gap 10 MEQ/L 12 MEQ/L 10 MEQ/L Estimat Glomerular Filtration Rate 31 ML/MIN 35 ML/MIN 36 ML/MIN Lipase 75 U/L Phosphorus Level 2.1 MG/DL Magnesium Level 2.0 MG/DL Hemoglobin A1c 5.6 % Free Thyroxine 1.06 NG/DL Thyroid Stimulating Hormone 3rd Gen 2.810 uIU/ML Objective Remarks GENERAL: Awake and alert but very hard of hearing to the point where he cannot answer questions appropriately-incredibly hard of hearing SKIN: Warm and dry.LEFT TOES WITH DRY GANGRENE HEAD: Atraumatic. Normocephalic. Very hard of hearing EYES: Pupils equal and round. No scleral icterus. No injection or drainage. Extraocular muscles intact ENT: No nasal bleeding or discharge. Mucous membranes pink and moist. Tongue is midline NECK: Trachea midline. No JVD. Supple CARDIOVASCULAR: Regular rate and rhythm. S1-S2 no S3 or S4 RESPIRATORY: No accessory muscle use. Clear to auscultation. Breath sounds equal bilaterally. GASTROINTESTINAL: Abdomen soft, non-tender, nondistended. Hepatic and splenic margins not palpable. MUSCULOSKELETAL: Extremities without clubbing, cyanosis, or edema. No obvious deformities. Bilateral lower extremities are contracted NEUROLOGICAL: Awake and alert. No obvious cranial nerve deficits. Motor grossly within normal limits.4 out of 5 muscle strength in the arms and legs. Normal speech. PSYCHIATRIC: Appropriate mood and affect; insight and judgment ABnormal. Patient is very hard of hearing Procedures NONE Medications and IVs Current Medications Levofloxacin/ Dextrose 150 ml @ 100 mls/hr ONCE ONCE IV Last administered on 09/24/17 21:15; Start 09/24/17 at 20:45; Stop 09/24/17 at 22:14; Status DC Acetaminophen (Tylenol) 325 mg Q6H PRN PO FEVER; Start 09/24/17 at 22:00 Albuterol Sulfate (Albuterol Neb) 2.5 mg Q4HR NEB PRN NEB COUGH Last administered on 09/26/17 17:40; Start 09/24/17 at 22:00 Aspirin (Aspirin Chew) 81 mg DAILY CHEW Last administered on 09/27/17 09:16; Start 09/25/17 at 09:00 Clopidogrel Bisulfate (Plavix) 75 mg DAILY PO Last administered on 09/27/17 09: 16; Start 09/25/17 at 09:00 Digoxin (Lanoxin) 0.125 mg EVERY OTHER DAY PO Last administered on 09/26/17 08 :47; Start 09/26/17 at 09:00 Docusate Sodium (Colace) 100 mg BID PO Last administered on 09/27/17 09:16; Start 09/25/17 at 09:00 Fluoxetine HCl (PROzac) 20 mg DAILY PO Last administered on 09/27/17 09:15; Start 09/25/17 at 09:00 Metoprolol Tartrate (Lopressor) 25 mg BID PO Last administered on 09/26/17 21: 10; Start 09/25/17 at 09:00 Ondansetron HCl (Zofran Odt) 4 mg Q6HR PRN PO NAUSEA OR VOMITING Last administered on 09/26/17 01:50; Start 09/24/17 at 22:00 Famotidine (Pepcid) 20 mg DAILY PO Last administered on 09/27/17 09:16; Start 09/25/17 at 09:00 Pravastatin Sodium (Pravachol) 20 mg DAILY PO Last administered on 09/27/17 09: 16; Start 09/25/17 at 09:00 Sodium Chloride 1,000 ml @ 100 mls/hr Q10H IV Last administered on 09/24/17 22:33; Start 09/24/17 at 21:53; Stop 09/25/17 at 07:52; Status DC Sodium Chloride (NS Flush) 2 ml UNSCH PRN IV FLUSH FLUSH AFTER USING IV ACCESS ; Start 09/24/17 at 22:00 Sodium Chloride (NS Flush) 2 ml BID IV FLUSH Last administered on 09/27/17at 09: 19; Start 09/25/17 at 09:00 Acetaminophen (Tylenol) 650 mg Q4H PRN PO TEMP > 100.4; Start 09/24/17 at 22:00 Ondansetron HCl (Zofran Inj) 4 mg Q6H PRN IVP NAUSEA OR VOMITING; Start at 22:00 Heparin Sodium (Porcine) (Heparin Inj) 5,000 units Q12H SQ Last administered on 09/27/17at 09:19; Start 09/24/17 at 22:00 Naloxone HCl (Narcan Inj) 0.4 mg UNSCH PRN IV PUSH SEE LABEL COMMENTS; Start at 22:00 Magnesium Hydroxide (Milk Of Magnesia Liq) 30 ml Q12H PRN PO Mild constipation ; Start 09/24/17 at 22:00 Sennosides (Senokot) 17.2 mg Q12H PRN PO Moderate constipation; Start 09/24/17 at 22:00 Bisacodyl (Dulcolax Supp) 10 mg DAILY PRN RECTAL SEVERE CONSITIPATION/ IF NPO; Start 09/24/17 at 22:00 Lactulose (Lactulose Liq) 30 ml DAILY PRN PO SEVERE CONSITIPATION/ IF PO; Start 09/24/17 at 22:00 Insulin Aspart (NovoLOG SUPPLEMENTAL SCALE) 1 ACHS SLIDING SCALE SQ ; Start 09/25/17 at 08:00 Ceftriaxone Sodium 1000 mg/ Sodium Chloride 100 ml @ 200 mls/hr Q12H IV Last administered on 09/27/17at 09:19; Start 09/25/17 at 09:00 A/P Problem List: (1) Hypertension ICD Code: I10 - Essential (primary) hypertension (2) Diabetes ICD Code: E11.9 - Type 2 diabetes mellitus without complications (3) 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 Patient was given Levaquin in the ED. - Given borderline renal functions, will continue antibiotics with Rocephin. No history of MDRO per review of alf chart. - follow urine culture Hypertension: Medicine continue metoprolol History of atrial fibrillation: - Continue metoprolol and digoxin. On aspirin. Unclear to me why he is not anticoagulated. Defer to his outpatient doctors. Diabetes: Sliding scale insulin with Accu-Cheks Social: Patient apparently has an appointed guardian. Paperwork in the chart. Case management consulted for assistance. Will need to return to nursing facility. Cognitive deficits/history of stroke: Patient is nonambulatory. He is bedbound. 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 Recommend outpatient follow-up with podiatry. DRY GANGRENE OF LEFT FOOT/TOES- CONSULT PODIATRY CKD stage IV: Per review of his chart. Creatinine 2 days ago was 2.0. - Follow-up BMP in a.m. Gentle hydration 1 L of normal saline. GI prophylaxis: Stool softener PRN constipation. Severely hard of hearing Physical therapy and occupational therapy to eval and treat DVT PPx: Heparin AWAIT LAB WORK TODAY IF IMPROVED HOPEFULLY TO SNF TOMORROW Discharge Planning CONTINUE ANTIBIOTICS CONSULT PODIATRY Problem Qualifiers (1) UTI (urinary tract infection): Qualified Codes: N30.00 - Acute cystitis without hematuria Adelfo Reed DO Sep 27, 2017 10:03
[2017-09-27 10:42] LABS: AUTOMATED NEUTROPHIL # 11.4 TH/MM3 (1.8-7.7); BASOPHIL # 0.1 TH/MM3 (0-0.2); BASOPHIL % 0.9 % (0.0-2.0); EOSINOPHIL # 0.3 TH/MM3 (0-0.4); EOSINOPHIL % 2.1 % (0.0-4.0); HEMATOCRIT 29.2 % (39.0-51.0); HEMOGLOBIN 9.6 GM/DL (13.0-17.0); LYMPH % 8.8 % (9.0-44.0); LYMPHOCYTE # 1.2 TH/MM3 (1.0-4.8); MEAN CELL VOLUME 102.6 FL (80.0-100.0); MEAN CORPUSCULAR HEMOGLOBIN 33.7 PG (27.0-34.0); MEAN CORPUSCULAR HGB CONC 32.9 % (32.0-36.0); MONO % 5.6 % (0.0-8.0); MONOCYTE # 0.8 TH/MM3 (0-0.9); NEUT % 82.6 % (16.0-70.0); PLATELET COUNT 424 TH/MM3 (150-450); RED BLOOD COUNT 2.85 MIL/MM3 (4.50-5.90); RED CELL DISTRIBUTION WIDTH 16.6 % (11.6-17.2); WHITE BLOOD COUNT 13.8 TH/MM3 (4.0-11.0)
[2017-09-27 11:13] LABS: ALKALINE PHOSPHATASE 296 U/L (45-117); ALT (GPT) 46 U/L (12-78); AST (GOT) 48 U/L (15-37); BICARBONATE 20.8 MEQ/L (21.0-32.0); BLOOD UREA NITROGEN 43 MG/DL (7-18); CALCIUM 8.2 MG/DL (8.5-10.1); CHLORIDE 110 MEQ/L (98-107); CREATININE 1.83 MG/DL (0.60-1.30); GLOMERULAR FILTRATION RATE 36 ML/MIN (>89); GLUCOSE,RANDOM 112 MG/DL (74-106); MAGNESIUM 2.1 MG/DL (1.5-2.5); PHOSPHORUS 2.5 MG/DL (2.5-4.9); SODIUM (NA) 139 MEQ/L (136-145); TOTAL BILIRUBIN ADULT 0.5 MG/DL (0.2-1.0); TOTAL PROTEIN 5.7 GM/DL (6.4-8.2)
[2017-09-27 11:26] LABS: BANDS 12 % (0-6); LYMPHOCYTES 14 % (9-44); MONOCYTES 4 % (0-8); MYELOCYTES 1 % (0-0); NEUTROPHIL # MANUAL DIFF 11.2 TH/MM3 (1.8-7.7); POLYS (SEG NEUTROPHILS) 68 % (16-70); TOXIC GRANULATION 3+ (NORMAL)
[2017-09-27 11:28] LABS: OVALOCYTES 1+ (NORMAL)
--- NOTE | 2017-09-27 14:35 | RADRPT ---
EXAM DATE/TIME: 09/27/2017 14:20 [facility] COMPARISON: No previous studies available for comparison. INDICATIONS : Evaluate for gangrene. MEDICAL HISTORY : None. SURGICAL HISTORY : None. ENCOUNTER: Initial ACUITY: 1 day PAIN SCORE: 0/10 LOCATION: Left Foot, 1st-5th reji FINDINGS: 3 views of the left foot reveal pronounced osteopenia. There is overlap of the first and second toes generating limitations to the evaluation of those structures. No cortical destruction or lucency obse rved. No fracture or dislocation. Atherosclerotic calcifications throughout the foot. Spurring of the calcaneus. CONCLUSION: Pronounced osteopenia without radiographic evidence to clearly suggest osteomyelitis. David Pisano Jr., MD on September 27, 2017 at 14:31 Board Certified Radiologist. This report was verified electronically.
[2017-09-28] VITALS: BP 105/54; PULSE 64; PULSE 65; RESP 17; TEMP 97.9; O2SAT 97
[2017-09-28 04:00] VITALS: BP 126/56; PULSE 65; RESP 17; TEMP 97.8; O2SAT 97
[2017-09-28 08:00] VITALS: BP 109/55; PULSE 65; RESP 20; TEMP 99.3; O2SAT 93
[2017-09-28] MEDS: INSULIN ASPART SUPPLEMENTAL SCALE SQ SCH ×2 (08:00→12:00)
[2017-09-28] MEDS: SODIUM CHLORIDE 0.9% FLUSH 10 ML FLUSH IV FLUSH SCH (09:28)
[2017-09-28] MEDS: DOCUSATE SODIUM 100 MG CAP PO SCH (09:28)
[2017-09-28] MEDS: ASPIRIN 81 MG CHEW TAB CHEW SCH (09:28)
[2017-09-28] MEDS: cefTRIAXone INJ 1,000 MG in SODIUM CHLORIDE 0.9% INJ 100 ML IV SCH (09:28)
[2017-09-28] MEDS: DIGOXIN 0.125 MG TAB PO SCH (09:29)
[2017-09-28] MEDS: PRAVASTATIN SOD 20 MG TAB PO SCH (09:30)
[2017-09-28] MEDS: CLOPIDOGREL 75 MG TAB PO SCH (09:30)
[2017-09-28] MEDS: FAMOTIDINE 20 MG TAB PO SCH (09:30)
[2017-09-28] MEDS: METOPROLOL TARTRATE 25 MG TAB PO SCH (09:31)
[2017-09-28] MEDS: FLUoxetine HCL 20 MG CAP PO SCH (09:31)
[2017-09-28] MEDS: HEPARIN SODIUM - SQ 10,000 UNITS/ML VIAL SQ SCH (09:46)
[2017-09-28 12:00] VITALS: BP 103/54; PULSE 63; RESP 20; TEMP 99.2; O2SAT 95
--- NOTE | 2017-09-28 13:15 | PD.CONS ---
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 Per ED notes patient arrived from a assisted and he was sent for concern of urinary tract infection, patient has some cognitive deficits. Patient is able to tell me his name and date of , not a very good historian. He denies any discomfort, nausea, vomiting, fevers, or chills. Review of Systems Constitutional: DENIES: Fever Respiratory: DENIES: Sputum production, Shortness of breath Cardiovascular: DENIES: Chest pain, Palpitations Musculoskeletal: DENIES: Joint pain, Muscle aches Neurologic: COMPLAINS OF: Abnormal gait Psychiatric: COMPLAINS OF: Confusion, DENIES: Anxiety Past Family Social History Allergies: Coded Allergies: No Known Allergies (Unverified , 09/24/17) Past Medical History As dictated in HPI Active Ordered Medications Current Medications Medications (Trade) Dose Ordered Sig/Conrad Route Start Time Stop Time Status Last Admin (Albuterol Neb) 2.5 mg Q4HR NEB PRN NEB 09/24/17 22:00 09/26/17 17:40 (Aspirin Chew) 81 mg DAILY CHEW 09/25/17 09:00 09/28/17 09:28 (Plavix) 75 mg DAILY PO 09/25/17 09:00 09/28/17 09:30 (Lanoxin) 0.125 mg EVERY OTHER DAY PO 09/26/17 09:00 09/28/17 09:29 (Colace) 100 mg BID PO 09/25/17 09:00 09/28/17 09:28 (PROzac) 20 mg DAILY PO 09/25/17 09:00 09/28/17 09:31 (Lopressor) 25 mg BID PO 09/25/17 09:00 09/28/17 09:31 (Zofran Odt) 4 mg Q6HR PRN PO 09/24/17 22:00 09/26/17 01:50 (Pepcid) 20 mg DAILY PO 09/25/17 09:00 09/28/17 09:30 (Pravachol) 20 mg DAILY PO 09/25/17 09:00 09/28/17 09:30 (NS Flush) 2 ml UNSCH PRN IV FLUSH 09/24/17 22:00 (NS Flush) 2 ml BID IV FLUSH 09/25/17 09:00 09/28/17 09:28 (Tylenol) 650 mg Q4H PRN PO 09/24/17 22:00 (Zofran Inj) 4 mg Q6H PRN IVP 09/24/17 22:00 (Heparin Inj) 5,000 units Q12H SQ 09/24/17 22:00 09/28/17 09:46 (Narcan Inj) 0.4 mg UNSCH PRN IV PUSH 09/24/17 22:00 (Milk Of Magnesia Liq) 30 ml Q12H PRN PO 09/24/17 22:00 (Senokot) 17.2 mg Q12H PRN PO 09/24/17 22:00 (Dulcolax Supp) 10 mg DAILY PRN RECTAL 09/24/17 22:00 (Lactulose Liq) 30 ml DAILY PRN PO 09/24/17 22:00 (NovoLOG SUPPLEMENTAL SCALE) 1 ACHS SLIDING SCALE SQ 09/25/17 08:00 Ceftriaxone Sodium 1000 mg/ Sodium Chloride 100 ml @ 200 mls/hr Q12H IV 09/25/17 09:00 09/28/17 09:28 Physical Exam Vital Signs Vital Signs Date Time Temp Pulse Resp B/P (MAP) Pulse Ox O2 Delivery O2 Flow Rate FiO2 09/28/17 08:00 99.3 65 20 109/55 (73) 93 09/28/17 04:00 65 09/28/17 04:00 97.8 65 17 126/56 (79) 97 09/28/17 00:00 65 09/28/17 00:00 97.9 64 17 105/54 (71) 97 09/27/17 22:30 65 09/27/17 22:10 98.1 65 20 92/51 (65) 96 09/27/17 19:20 98.1 62 17 106/60 (75) 94 09/27/17 15:41 98.2 65 18 128/56 (80) 99 Physical Exam GENERAL: This is a well-nourished, well-developed patient, in no apparent distress. SKIN: Left hallux, second digit, fourth digit dry eschar noted. HEAD: Atraumatic. EYES: Pupils equal round and reactive. ENT: Airway patent. NECK: Trachea midline. RESPIRATORY: Nonlabored breathing. MUSCULOSKELETAL:. Negative Homans sign bilaterally. NEUROLOGICAL: Awake and alert. Normal speech. Lower extremity physical exam: Vascular: Dorsalis pedis nonpalpable, posterior tibial nonpalpable. Capillary refill time within normal limits to digits 5 bilateral foot. Edema present bilateral foot mildly with no pitting. Neuro: Gross sensation intact to bilateral lower extremity. Pinpoint sensation intact. No hyperalgesia noted to bilateral lower extremity Dermatology: Normal temperature and turgor to bilateral lower extremity. Dry eschar noted to distal aspect of left hallux, second digit, and fourth digit. No surrounding erythema noted, no purulent drainage upon compression, no fluctuance and no crepitus present. No acute signs of infection, no probe to bone. Musculoskeletal: Tender to palpation to to left digits. Contracture noted to left knee as he is unable or perhaps unwilling to straighten out his foot. Laboratory Date/Time Source Procedure Growth Status 09/25/17 06:35 Urine Clean Catch Urine Culture - Final NO GROWTH IN 48 HOURS. Complete Result Diagram: 09/27/17 1000 09/27/17 1000 Imaging Last Impressions Foot X-Ray 09/27/17 0000 Signed Impressions: Service Date/Time: Wednesday, September 27, 2017 14:20 - CONCLUSION: Pronounced osteopenia without radiographic evidence to clearly suggest osteomyelitis. David Pisano Jr., MD Assessment and Plan Assessment and Plan 76-year-old male with left hallux, second digit, fourth digit distal eschar present Patient examined and evaluated with all questions answered Stable eschars noted to distal aspect of left hallux, second digit, fourth digit Recommend Betadine with dry sterile dressing to digits Eschar will continue to demarcate No concern for infection X-rays reviewed no signs of osteomyelitis Left toes not a source of infection Patient is welcome to follow-up for wound care in office, will place physician information in discharge orders Mana Asher DPM Sep 28, 2017 13:14
[2017-09-28 14:29] LABS: AUTOMATED NEUTROPHIL # 8.7 TH/MM3 (1.8-7.7); BASOPHIL # 0.1 TH/MM3 (0-0.2); EOSINOPHIL # 0.3 TH/MM3 (0-0.4); EOSINOPHIL % 2.4 % (0.0-4.0); HEMATOCRIT 31.7 % (39.0-51.0); HEMOGLOBIN 10.4 GM/DL (13.0-17.0); LYMPH % 6.5 % (9.0-44.0); LYMPHOCYTE # 0.7 TH/MM3 (1.0-4.8); MEAN CELL VOLUME 103.3 FL (80.0-100.0); MEAN CORPUSCULAR HEMOGLOBIN 33.9 PG (27.0-34.0); MEAN CORPUSCULAR HGB CONC 32.8 % (32.0-36.0); MEAN PLATELET VOLUME 8.9 FL (7.0-11.0); MONO % 7.1 % (0.0-8.0); MONOCYTE # 0.7 TH/MM3 (0-0.9); PLATELET COUNT 371 TH/MM3 (150-450); RED BLOOD COUNT 3.07 MIL/MM3 (4.50-5.90); RED CELL DISTRIBUTION WIDTH 16.6 % (11.6-17.2); WHITE BLOOD COUNT 10.5 TH/MM3 (4.0-11.0)
[2017-09-28 15:05] LABS: ALBUMIN 1.9 GM/DL (3.4-5.0); ALT (GPT) 43 U/L (12-78); AST (GOT) 40 U/L (15-37); BICARBONATE 19.9 MEQ/L (21.0-32.0); BLOOD UREA NITROGEN 39 MG/DL (7-18); CHLORIDE 110 MEQ/L (98-107); CREATININE 1.78 MG/DL (0.60-1.30); GLOMERULAR FILTRATION RATE 38 ML/MIN (>89); GLUCOSE,RANDOM 102 MG/DL (74-106); MAGNESIUM 2.1 MG/DL (1.5-2.5); PHOSPHORUS 2.3 MG/DL (2.5-4.9); SODIUM (NA) 137 MEQ/L (136-145)
[2017-09-28 15:07] LABS: ALKALINE PHOSPHATASE 279 U/L (45-117); TOTAL BILIRUBIN ADULT 0.4 MG/DL (0.2-1.0); TOTAL PROTEIN 5.8 GM/DL (6.4-8.2)
[2017-09-28] MEDS ORDERED: APIX5TAB PO (15:18)
--- NOTE | 2017-09-28 15:22 | HHI.DS ---
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 Apparently the patient was sent for concern of urinary tract infection. I reviewed the available medical records from the nursing facility. Apparently the patient has a history of CVA, he is bedbound. He does have an appointed guardian in his chart. Evidently he has some cognitive deficits. He knows his name and that he is in the hospital but he does not know why. He is unable to contribute to the medical history. He currently denies any dysuria. He does not know whether or not he has had fevers. He could not tell me the last time he ate. He is very hard of hearing and currently does not have any specific complaints. CBC/BMP: 09/28/17 1340 09/27/17 1000 Significant Findings Laboratory Tests Test 09/26/17 12:30 09/27/17 10:00 09/28/17 13:40 White Blood Count 13.0 TH/MM3 (4.0-11.0) 13.8 TH/MM3 (4.0-11.0) Red Blood Count 2.75 MIL/MM3 (4.50-5.90) 2.85 MIL/MM3 (4.50-5.90) 3.07 MIL/MM3 (4.50-5.90) Hemoglobin 9.3 GM/DL (13.0-17.0) 9.6 GM/DL (13.0-17.0) 10.4 GM/DL (13.0-17.0) Hematocrit 27.9 % (39.0-51.0) 29.2 % (39.0-51.0) 31.7 % (39.0-51.0) Mean Corpuscular Volume 101.5 FL (80.0-100.0) 102.6 FL (80.0-100.0) 103.3 FL (80.0-100.0) Neutrophils (%) (Auto) 80.9 % (16.0-70.0) 82.6 % (16.0-70.0) 83.0 % (16.0-70.0) Lymphocytes (%) (Auto) 8.6 % (9.0-44.0) 8.8 % (9.0-44.0) 6.5 % (9.0-44.0) Neutrophils # (Auto) 10.5 TH/MM3 (1.8-7.7) 11.4 TH/MM3 (1.8-7.7) 8.7 TH/MM3 (1.8-7.7) Monocytes # (Auto) 1.0 TH/MM3 (0-0.9) Blood Urea Nitrogen 46 MG/DL (7-18) 43 MG/DL (7-18) 39 MG/DL (7-18) Creatinine 1.83 MG/DL (0.60-1.30) 1.83 MG/DL (0.60-1.30) 1.78 MG/DL (0.60-1.30) Total Protein 5.5 GM/DL (6.4-8.2) 5.7 GM/DL (6.4-8.2) 5.8 GM/DL (6.4-8.2) Albumin 1.9 GM/DL (3.4-5.0) 2.0 GM/DL (3.4-5.0) 1.9 GM/DL (3.4-5.0) Calcium Level 8.0 MG/DL (8.5-10.1) 8.2 MG/DL (8.5-10.1) 8.0 MG/DL (8.5-10.1) Phosphorus Level 2.1 MG/DL (2.5-4.9) 2.3 MG/DL (2.5-4.9) Alkaline Phosphatase 318 U/L (45-117) 296 U/L (45-117) 279 U/L (45-117) Aspartate Amino Transf (AST/SGOT) 60 U/L (15-37) 48 U/L (15-37) 40 U/L (15-37) Chloride Level 108 MEQ/L (98-107) 110 MEQ/L (98-107) 110 MEQ/L (98-107) Carbon Dioxide Level 20.2 MEQ/L (21.0-32.0) 20.8 MEQ/L (21.0-32.0) 19.9 MEQ/L (21.0-32.0) Estimat Glomerular Filtration Rate 36 ML/MIN (>89) 36 ML/MIN (>89) 38 ML/MIN (>89) Band Neutrophils % 12 % (0-6) Neutrophils # (Manual) 11.2 TH/MM3 (1.8-7.7) Myelocytes 1 % (0-0) Toxic Granulation 3+ (NORMAL) Platelet Estimate HIGH (NORMAL) Ovalocytes 1+ (NORMAL) Random Glucose 112 MG/DL (74-106) Lymphocytes # (Auto) 0.7 TH/MM3 (1.0-4.8) Imaging Last Impressions Foot X-Ray 09/27/17 0000 Signed Impressions: Service Date/Time: Wednesday, September 27, 2017 14:20 - CONCLUSION: Pronounced osteopenia without radiographic evidence to clearly suggest osteomyelitis. David Pisano Jr., MD PE at Discharge GENERAL: Awake and alert but very hard of hearing to the point where he cannot answer questions appropriately-incredibly hard of hearing SKIN: Warm and dry.LEFT TOES WITH DRY GANGRENE HEAD: Atraumatic. Normocephalic. Very hard of hearing EYES: Pupils equal and round. No scleral icterus. No injection or drainage. Extraocular muscles intact ENT: No nasal bleeding or discharge. Mucous membranes pink and moist. Tongue is midline NECK: Trachea midline. No JVD. Supple CARDIOVASCULAR: Regular rate and rhythm. S1-S2 no S3 or S4 RESPIRATORY: No accessory muscle use. Clear to auscultation. Breath sounds equal bilaterally. GASTROINTESTINAL: Abdomen soft, non-tender, nondistended. Hepatic and splenic margins not palpable. MUSCULOSKELETAL: Extremities without clubbing, cyanosis, or edema. No obvious deformities. Bilateral lower extremities are contracted NEUROLOGICAL: Awake and alert. No obvious cranial nerve deficits. Motor grossly within normal limits.4 out of 5 muscle strength in the arms and legs. Normal speech. PSYCHIATRIC: Appropriate mood and affect; insight and judgment ABnormal. Patient is very hard of hearing Pt update on day of discharge Patient is awake but confused. No fever. Hospital Course Patient was admitted due to suspected UTI. I discussed with his court appointed guardian. I discussed about patient's current condition and I reported that Urine cx was negative. However, he did receive abx empirically. Also discussed about Afib anticoagulation. Since patient has a history of CVA, I believe it would be better to put him on Apixaban and discontinue Aspirin, Plavix. Apixaban 5mg would be appropriate at this point. Court appointed guardian is agreeable to this change. Patient was evaluated by Podiatry who will follow patient in the outpatient setting. Patient also had PAULO during this admission. Creatinine improved from 2.13 --> 1.78. I would encourage more fluid intake at the [facility]. Patient likely has CKD. Also repeat BMP in 3-5 days. Pt Condition on Discharge: Fair Discharge Disposition: Discharge to SNF Discharge Time: <= 30 minutes Discharge Instructions DIET: Follow Instructions for: As Tolerated, No Restrictions Activities you can perform: Regular-No Restrictions Follow up Referrals: Podiatry - 3 Weeks @ [facility] with Mana Asher DPM New Medications: Apixaban (Eliquis) 5 Mg Tab 5 MG PO BID for Blood Clot Prevention, #60 TAB 3 Refills Continued Medications: Acetaminophen (Tylenol) 325 Mg Tab 325 MG PO Q6H PRN for FEVER, TAB 0 Refills Albuterol Neb (Albuterol Neb) 2.5 Mg/0.5 Ml Neb 2.5 MG NEB Q4HR NEB PRN for COUGH, EA Note: The Albuterol Sulfate Inhalation Solution is concentrated and must be diluted. Read complete instructions carefully before using. Allopurinol (Allopurinol) 100 Mg Tab 150 MG PO DAILY for Gout, #30 TAB 0 Refills Digoxin (Digoxin) 0.125 Mg Tab 0.125 MG PO EVERY OTHER DAY for Regulate Heart Beat, #30 TAB 0 Refills Docusate Sodium (Docusate Sodium) 100 Mg Cap 100 MG PO BID for Prevent Constipation, #60 CAP 0 Refills Fluoxetine (Prozac) 20 Mg Cap 20 MG PO DAILY, #30 CAP 0 Refills Metoprolol Tartrate (Metoprolol Tartrate) 25 Mg Tab 25 MG PO BID, #60 TAB 0 Refills Ondansetron (Zofran) 4 Mg Tab 4 MG PO Q6HR PRN for NAUSEA OR VOMITING, TAB 0 Refills Ranitidine (Zantac) 150 Mg Tab 150 MG PO DAILY for Reduce Stomach Acid, #30 TAB 0 Refills Simvastatin (Zocor) 10 Mg Tab 10 MG PO DAILY for Cholesterol Management, #30 TAB 0 Refills Discontinued Medications: Aspirin (Aspirin Low Dose) 81 Mg Chew 81 MG CHEW DAILY, TAB 0 Refills Bumetanide (Bumetanide) 1 Mg Tab 1 MG PO DAILY, #30 TAB 0 Refills Clopidogrel (Plavix) 75 Mg Tab 75 MG PO DAILY for Blood Clot Prevention, #30 TAB 0 Refills Geronimo Wall DO Sep 28, 2017 15:22
[2017-09-28 16:00] VITALS: BP 109/58; PULSE 65; RESP 20; TEMP 98.4; O2SAT 98
== END 2017-09-28 17:49 | DRG 683 ==
LOC: NEPE 18:07 → NEDA 21:55 → NEPGCP 22:47 → OBSVTOIN 09-25 11:46 → N04A 09-27 22:10
PROVIDERS: ADMIT Hospitalist; ATTEND Hospitalist
DX: N17.9 Acute kidney failure, unspecified (principal); E11.52 Type 2 diabetes mellitus with diabetic peripheral angiopathy with gangrene; I13.0 Hypertensive heart and chronic kidney disease with heart failure and stage 1 through stage 4 chronic kidney disease, or unspecified chronic kidney disease; I50.9 Heart failure, unspecified; N18.4 Chronic kidney disease, stage 4 (severe); I48.91 Unspecified atrial fibrillation; H91.90 Unspecified hearing loss, unspecified ear; I69.319 Unspecified symptoms and signs involving cognitive functions following cerebral infarction; R82.90 Unspecified abnormal findings in urine; Z74.01 Bed confinement status; M24.562 Contracture, left knee; M24.561 Contracture, right knee
CPT/HCPCS: 73630; 80048; 80053; 81001; 82948; 83036; 83690; 83735; 84100; 84439; 84443; 85007; 85025; 85027; 87086; 94664; 96361; 96365; 96372; G0378; G8987-GO; G8987-GP; G8988-GO; G8988-GP; G8989-GO; J0696; J1644; J1815; J1956; J7030; J7613

== ENCOUNTER 2017-10-02 03:46 | Emergency (ER) | payer MEDICARE, MEDICAID ==
[~2017-10-02 03:46] MED LIST: ALBU.5I NEB; ALLO100T PO; APIX5TAB PO; ASPI81CH6 CHEW; BUME1TAB PO; DIGO0.12 PO; DOCU100C15 PO; METO25TA3 PO; PLAV75TA29 PO; PROZ20CA11 PO; TYLE325T PO; ZANT150T2 PO; ZOCO10TA PO; ZOFR4TAB PO
[2017-10-02] MEDS ORDERED: CALCIUM CHLORIDE 10% SOLN 1 GRAM/10 ML SYR IV ONE (03:47)
[2017-10-02] MEDS ORDERED: SODIUM BICARBONATE 8.4% INJ 50 MEQ/50 ML SYR IV ONE (03:47)
[2017-10-02] MEDS ORDERED: EPINEPHrine HCL (1:10,000) 1 MG/10 ML SYRINGE IV ONE (03:47)
--- NOTE | 2017-10-02 04:20 | PD ---
HPI Chief Complaint: Code Blue Time Seen by Provider: 04:03 Travel History International Travel<30 days: No Contact w/Intl Traveler<30days: No Traveled to known affect area: No History of Present Illness HPI Patient is a 76-year-old male who has a history of a CVA in the past which has left him bedbound contracted legs and a sacral decubitus ulcer she was actually in our hospital a week ago I admitted him for a UTI to the floor he was treated for 4 days of inpatient and discharged 4 days ago back to the long term. Tonight he was possibly a witnessed cardiac arrest and they began CPR and called the paramedics who found him to be apneic and in cardiac standstill they began CPR the the Combitube and because of the difficult intubation and transported him to the ER after giving 3 epi and 2 bicarbonate with return of V. fib which was shocked into a normal sinus organized rhythm on the monitor he arrives with ultrasound bedside showing some cardiac activity and after another epi and bicarbonate and calcium chloride which was given by the paramedics he gains a pulse an ultrasound of the heart shows good contractile at a he is a cardiac arrest unknown cause PFSH Past Medical History Anxiety: Yes Depression: Yes Congestive Heart Failure: Yes COPD: Yes Cerebrovascular Accident: Yes Coronary Artery Disease: Yes Diabetes: Yes Diminished Hearing: Yes GERD: Yes Gout: Yes Hypertension: Yes Insomnia: Yes Renal Failure: Yes Past Surgical History Eye Surgery: Yes (cataracts excision) Pacemaker: Yes Social History Alcohol Use: No Tobacco Use: No Substance Use: No Allergies-Medications (Allergen,Severity, Reaction): Coded Allergies: No Known Allergies (Unverified , 09/24/17) Reported Meds & Prescriptions Reported Meds & Active Scripts Active Eliquis (Apixaban) 5 Mg Tab 5 Mg PO BID Reported Docusate Sodium 100 Mg Cap 100 Mg PO BID Tylenol (Acetaminophen) 325 Mg Tab 325 Mg PO Q6H PRN Albuterol Neb (Albuterol Sulfate) 2.5 Mg/0.5 Ml Neb 2.5 Mg NEB Q4HR NEB PRN Note: The Albuterol Sulfate Inhalation Solution is concentrated and must be diluted. Read complete instructions carefully before using. Zofran (Ondansetron HCl) 4 Mg Tab 4 Mg PO Q6HR PRN Zantac (Ranitidine HCl) 150 Mg Tab 150 Mg PO DAILY Allopurinol 100 Mg Tab 150 Mg PO DAILY Digoxin 0.125 Mg Tab 0.125 Mg PO EVERY OTHER DAY Zocor (Simvastatin) 10 Mg Tab 10 Mg PO DAILY Prozac (Fluoxetine HCl) 20 Mg Cap 20 Mg PO DAILY Metoprolol Tartrate 25 Mg Tab 25 Mg PO BID Review of Systems ROS Limitations: Intubated, Unresponsive Except as stated in HPI: all other systems reviewed are Neg Physical Exam Narrative GENERAL: Patient is unconscious intubated pupils fixed and dilated legs contracted unresponsive SKIN:. Cool extremities contracted lower limbs. sacral decubitus HEAD: Atraumatic. Normocephalic. EYES: Fixed and dilated nonreactive ENT: Initial airway pt arrives Intubated with a Combitube I removed the Combitube there is no signs of trauma to the airway no bleeding I intubate him with 8.0 without complication. NECK: No signs of trauma CARDIOVASCULAR: No organized rhjythm , then HCO3 and Epi x2 cardiac activity returns , pulses femoral doppler SONO chest cardiac activity then eventually decrease to standstill RESPIRATORY: pt has good breath sounds with BVM at axilla bilateral after Intubation BVM .. good chest rise GASTROINTESTINAL: Abdomen soft,nondistended. Hepatic and splenic margins not palpable. MUSCULOSKELETAL: Ext lower limbs contracted bilateral NEUROLOGICAL: obtunded without sedation Psych : Obtunded without sedation MDM Medical Decision Making Medical Screen Exam Complete: Yes Emergency Medical Condition: Yes Differential Diagnosis resp arrest to cardiac arrest due to electrolyte abnormality vs resp failure COPD to acidosis to cardiac arrest Narrative Course CPR bedside ECHO and epi BiCarb IV amps and fluid resusitation re-eval of cardiac activity with US bedside by this MD and after total time down was 1 hr I called of the CODE and 4:01 AM pt pronounced Critical Care Narrative critical care 30 miniutes CPR then cardiac activity then repeated cardiac arrest Procedures Procedure Narrative Intubation, I removed COMBITUBE and without sedation performed direct visualization of vocal chords and passed a 8.0 tube without complication , first attempt successful confirmed by ausculatation and direct visualization o2 sat 98 Diagnosis Primary Impression: Cardiac arrest Disposition: 20 Vladislav Lynn MD Oct 02, 2017 04:20
== END 2017-10-02 04:45 | disposition expired ==
LOC: NEPE 03:46
DX: I46.9 Cardiac arrest, cause unspecified (principal); I13.0 Hypertensive heart and chronic kidney disease with heart failure and stage 1 through stage 4 chronic kidney disease, or unspecified chronic kidney disease; I50.9 Heart failure, unspecified; N18.9 Chronic kidney disease, unspecified; E11.22 Type 2 diabetes mellitus with diabetic chronic kidney disease; I25.10 Atherosclerotic heart disease of native coronary artery without angina pectoris; K21.9 Gastro-esophageal reflux disease without esophagitis; J44.9 Chronic obstructive pulmonary disease, unspecified; Z86.73 Personal history of transient ischemic attack (TIA), and cerebral infarction without residual deficits
CPT/HCPCS: 31500; 92950; 99291; J0171